=== PATIENT | female | born 1995 | race Caucasian/White ===

== ENCOUNTER 2021-10-29 06:30 | Outpatient (REF) | payer MEDICAID, SELFPAY ==
[2021-10-29 08:14] LABS: COVID-19 Test Negative (Negative); IDNOW Serial# 55D5AD1C
== END 2021-10-29 06:31 | disposition home or self-care (01) ==
LOC: HO.LAB 06:30
PROVIDERS: Visit Provider Internal Medicine
DX: Z20.822 Contact with and (suspected) exposure to COVID-19 (principal)
CPT/HCPCS: 87635; C9803